=== PATIENT | female | born 1980 | race American Indian/Alaskan Native ===

== ENCOUNTER 2021-06-13 10:24 | Emergency (ER) | payer OTHER, SELFPAY ==
[2021-06-13 11:03] VITALS: BP 132/97
--- NOTE | 2021-06-13 11:07 | Emergency Department Report ---
- General Chief Complaint: Dyspnea/Respdistress Stated Complaint: CHEST PAIN COUGH FATIGUE SOB Time Seen by Provider: 06/13/21 11:05 Source: patient Mode of arrival: Ambulatory Limitations: No Limitations - History of Present Illness Initial Comments: 40-year-old female who reports no significant past medical history presents to the ER today with complaints of cough for the past 5 days. She states that it has been mainly a nonproductive cough. She reports associated intermittent chills, anterior chest pain mainly when she coughs, intermittent shortness of breath and she states that when she takes a deep breath it causes her to cough so she has been avoiding try to take deep breaths. She reports mild rhinorrhea and some generalized body aches and fatigue. She denies any sore throat, fever at home, GI or symptoms. She denies any apparent ill contacts. She states that she took a COVID-19 test 7 days ago and that was negative. She did take another one 3 days ago and the results are pending. She has not got her COVID- 19 vaccine. She denies any illicit drug use, alcohol abuse or tobacco use. MD Complaint: cough -: days(s) (5) - Related Data Previous Rx's Medication Instructions Recorded Last Taken Type Albuterol Mdi (or & Nicu Only) 2 puff IH QID PRN #8.5 gram 06/13/21 Unknown Rx [ProAir HFA Inhaler] Benzonatate [Tessalon Perles] 100 mg PO Q8HR #30 capsule 06/13/21 Unknown Rx Ibuprofen [Motrin] 600 mg PO Q8H PRN #30 tablet 06/13/21 Unknown Rx dexAMETHasone [Decadron] 4 mg PO DAILY #5 tablet 06/13/21 Unknown Rx Allergies Allergy/AdvReac Type Severity Reaction Status Date / Time No Known Allergies Allergy Unverified 06/13/21 11:00 ED Review of Systems ROS: Stated complaint: CHEST PAIN COUGH FATIGUE SOB Other details as noted in HPI Comment: All other systems reviewed and negative Constitutional: chills, malaise. denies: fever ENT: other (rhinorrhea) Respiratory: cough, shortness of breath Cardiovascular: chest pain (mainly with cough) Gastrointestinal: denies: abdominal pain, nausea, vomiting, diarrhea, constipation, hematemesis Genitourinary: denies: urgency, dysuria, frequency, hematuria, discharge, abnormal menses, dyspareunia Musculoskeletal: myalgia Skin: denies: rash, lesions, change in color, change in hair/nails, pruritus Neurological: denies: headache, weakness, paresthesias Psychiatric: denies: anxiety, depression, auditory hallucinations, visual hallucinations, homicidal thoughts, suicidal thoughts Hematological/Lymphatic: denies: easy bleeding, easy bruising, swollen glands ED Past Medical Hx - Past Medical History Previous Medical History?: No - Surgical History Past Surgical History?: No - Medications Home Medications: Home Medications Medication Instructions Recorded Confirmed Last Taken Type Albuterol Mdi (or & Nicu Only) 2 puff IH QID PRN #8.5 gram 06/13/21 Unknown Rx [ProAir HFA Inhaler] Benzonatate [Tessalon Perles] 100 mg PO Q8HR #30 capsule 06/13/21 Unknown Rx Ibuprofen [Motrin] 600 mg PO Q8H PRN #30 tablet 06/13/21 Unknown Rx dexAMETHasone [Decadron] 4 mg PO DAILY #5 tablet 06/13/21 Unknown Rx ED Physical Exam - General Limitations: No Limitations General appearance: alert, in no apparent distress - Head Head exam: Present: atraumatic, normocephalic, normal inspection - Eye Eye exam: Present: normal appearance, PERRL, EOMI Pupils: Present: normal accommodation - Neck Neck exam: Present: normal inspection, full ROM. Absent: meningismus - Respiratory Respiratory exam: Present: normal lung sounds bilaterally, other (pt with dry cough with deep breathes). Absent: respiratory distress, wheezes, rales, rhonchi - Cardiovascular Cardiovascular Exam: Present: regular rate, normal rhythm, normal heart sounds - GI/Abdominal GI/Abdominal exam: Present: soft. Absent: distended, tenderness, guarding, rebound - Neurological Exam Neurological exam: Present: alert, oriented X3, CN II-XII intact, normal gait - Psychiatric Psychiatric exam: Present: normal affect, normal mood - Skin Skin exam: Present: intact ED Course Vital Signs 06/13/21 11:02 Temperature 98.9 F Pulse Rate 104 H Respiratory 18 Rate Blood Pressure 132/97 [Right] O2 Sat by Pulse 100 Oximetry ED Medical Decision Making - Radiology Data Radiology results: report reviewed Patient: MASSIMO CLANCY MR#: [id number] : 1980 Acct:[id number] Age/Sex: 40 / F ADM Date: 06/13/21 Loc: ED Attending Dr: Ordering Physician: PACO AMEZQUITA Date of Service: 06/13/21 Procedure(s): XR chest routine 2V Accession Number(s): [id number] cc: PACO AMEZQUITA Fluoro Time In Minutes: CHEST 2 VIEWS INDICATION: cough. COMPARISON: None FINDINGS: Support devices: None. Heart: Within normal limits. Lungs/pleura: No acute air space or interstitial disease. No pneumothorax. Additional findings: None. IMPRESSION: No acute findings. Signer Name: Nico Lopez Jr, MD Signed: 06/13/2021 11:34 AM Workstation Name: [id number] Transcribed By: TTR Dictated By: NICO LOPEZ JR, MD Electronically Authenticated By: NICO LOPEZ JR, MD Signed Date/Time: 06/13/211133 DD/ 33 TD/TT: - Medical Decision Making Chest x-ray shows nothing acute. Repeat HR and pulse ox at rest 103 and 99 percent on RA Ambulate patient myself in ED and she maintained O2 sat of 98/99% on RA. She is not toxic or ill-appearing. She is not in any acute respiratory distress. She is neurologically intact with a normal gait. Discussed x-ray results with patient. Suspect that his symptoms could be related to Covid but at this time there is no indication for admission. She already has a Covid test pending. Informed her that she will need to quarantine until Covid test results, and if it is positive she will need to quarantine according to her job protocol. She will be discharged home with prescriptions to help with her symptoms, but also recommend that she rest, take a multivitamin and lots of fluids. She expressed understanding of all instructions and agree with plan. Patient stable at time of discharge. Critical care attestation.: If time is entered above; I have spent that time in minutes in the direct care of this critically ill patient, excluding procedure time. ED Disposition Clinical Impression: Acute bronchitis, Suspected COVID-19 virus infection Disposition: HOME / SELF CARE / HOMELESS Is pt being admited?: No Does the pt Need Aspirin: No Condition: Stable Instructions: Acute Bronchitis, Adult, [id number], COVID-19: How to Protect Yourself and Others - CDC, Prevent the Spread of COVID-19 if You Are Sick - CDC, Acute Bronchitis (ED) Additional Instructions: Recommend using the albuterol inhaler as prescribed, take the Tessalon perles and the Decadron and ibuprofen as prescribed. Recommend that you drink lots of fluids, get lots of rest, and take a multivitamin containing zinc, vitamin D and vitamin C. If your COVID-19 test is positive you will need to quarantine for your job protocol. Continue to protect yourself and others by wearing a mask, staying at home and lots of hand pamphlet distributor and washing. Follow-up closely with your primary care doctor. Return to the ER if your symptoms worsens in any way. Prescriptions: dexAMETHasone [Decadron] 4 mg PO DAILY #5 tablet Ibuprofen [Motrin] 600 mg PO Q8H PRN #30 tablet PRN Reason: Pain Albuterol Mdi (or & Nicu Only) [ProAir HFA Inhaler] 2 puff IH QID PRN #8.5 gram PRN Reason: Shortness Of Breath Benzonatate [Tessalon Perles] 100 mg PO Q8HR #30 capsule Referrals: [facility] [Provider Group] - 3-5 Days Forms: Work/School Release Form(ED) Time of Disposition: 12:15
--- NOTE | 2021-06-13 11:40 | XRay Report ---
CHEST 2 VIEWS INDICATION: cough. COMPARISON: None FINDINGS: Support devices: None. Heart: Within normal limits. Lungs/pleura: No acute air space or interstitial disease. No pneumothorax. Additional findings: None. IMPRESSION: No acute findings. Signer Name: Nico Ayers Jr, MD Signed: 06/13/2021 11:34 AM Workstation Name: [id number]
== END 2021-06-13 12:28 | disposition home or self-care (01) ==
LOC: ED 10:24
DX: J20.9 Acute bronchitis, unspecified (principal); Z20.822 Contact with and (suspected) exposure to COVID-19; Z79.899 Other long term (current) drug therapy
CPT/HCPCS: 71046